=== PATIENT | female | born 1990 | race Caucasian/White ===

== ENCOUNTER → 2025-03-03 | Emergency (ER) | payer BC ==
[~2025-03-03] VITALS: Ht 170.2 cm; Wt 124.7 kg
[~2025-03-03] MED LIST: ACETAMINOPHEN 325 MG TAB PO ONE; BUPROPION XL300 MG PO; Dexamethasone Sodium Phospha 20 MG/5 ML VIAL IM ONE; FLUOXETINE HYDR20 M1 PO; LORAZEPAM0.5 M1 GT; MEDROL DOSEPAK4 MG PO; Ondansetron Hydrochloride 4 MG TAB SL ONE; PROPRANOLOL HCL10 MG PO
== END ==
LOC: ED 04:59
DX: B34.9 Viral infection, unspecified (principal); Z20.822 Contact with and (suspected) exposure to COVID-19; Z79.899 Other long term (current) drug therapy